=== PATIENT | female | born 1990 | race African-American/Black ===

== ENCOUNTER 2020-09-04 08:40 | Emergency (ER) | payer OTHER ==
[~2020-09-04] VITALS: Ht 177.8 cm; Wt 84.4 kg
[2020-09-04] MEDS ORDERED: FLEXERIL PO (10:49)
[2020-09-04] MEDS ORDERED: NORCO 5-325 TA1 EAC2 PO (10:49)
[2020-09-04 11:00] VITALS: BP 110/70
== END 2020-09-04 11:00 | disposition home or self-care (01) ==
LOC: M.ERS 08:40
DX: M25.552 Pain in left hip (principal); R51.9 Headache, unspecified; H53.149 Visual discomfort, unspecified; V89.2XXA Person injured in unspecified motor-vehicle accident, traffic, initial encounter; Y93.89 Activity, other specified; Y92.89 Other specified places as the place of occurrence of the external cause; Y99.8 Other external cause status